=== PATIENT | female | born 1975 | race African-American/Black ===

== ENCOUNTER → 2016-09-17 | Outpatient (CLI) | payer OTHER ==
[~2016-09-17] MED LIST: ALBU17IN INH; ALBU17IN2 INH; CETI10TA PO; COMBAER6 INH; E-ZMIS3 XX; LEVA12INH INH; LEVA1TAB2 PO; PRED10TA2 PO; PRED20TA PO; TRAM50TA2 PO; [UNRECOGNIZED DRUG - CODE] PO
--- NOTE | 2016-09-17 13:45 | REP ---
RIGHT RIB SERIES: Four views of the right ribs are performed. No fracture or bone lesion is seen. An accompanying view of the chest demonstrates no acute infiltrate or other acute abnormality. The heart is normal in size. IMPRESSION: Negative right rib series. Signed by Fabrizio Quinn MD 09/17/2016 03:31 P
== END ==
LOC: M LRY 12:38
PROVIDERS: ATTEND Nurse Practitioner Family
DX: R07.81 Pleurodynia (principal)

== ENCOUNTER 2016-09-22 11:36 | Observation (INO) | payer OTHER ==
[~2016-09-22] VITALS: Ht 172.7 cm; Wt 75.7 kg
[2016-09-22] MEDS ORDERED: ALBU17IN2 INH (11:54)
[2016-09-22] MEDS ORDERED: TRAM50TA2 PO ×2 (11:54→17:52)
[2016-09-22] MEDS ORDERED: IPRATROPIUM 0.5MG/ALBUTEROL 2.5MG INH SOL UD 3ML (DUONEB)(J7620) NEB STA (12:46)
[2016-09-22] MEDS ORDERED: methylPREDNISolone INJ 125 MG/2 ML VIAL (J2930) IV ONE (13:00)
[2016-09-22 13:13] LABS: BASO # 0.1 K/mm3 (0.0-0.2); BASO % 1.1 % (0.0-1.0); EOS # 0.6 K/mm3 (0.0-0.50); EOS % 6.6 % (0.0-3.0); LARGE UNSTAINED CELL # 0.1 K/mm3 (0.0-0.4); LARGE UNSTAINED CELL % 1.1 % (0.0-4.0); LYMPH # 1.1 K/mm3 (1.5-4.5); MEAN CORPUSCULAR HGB CONC 33.7 g/dl (32.0-36.5); MONO # 0.6 K/mm3 (0.0-0.8); NEUTROPHILS % 73.2 % (36.0-66.0); PLATELET COUNT, AUTOMATED 320 k/mm3 (150-450); RED CELL DISTRIBUTION WIDTH 12.6 % (11.5-14.5); WHITE BLOOD COUNT 9.5 K/mm3 (4.0-10.0)
[2016-09-22 13:14] LABS: ALBUMIN 3.7 GM/DL (3.2-5.2); ALBUMIN/GLOBULIN RATIO 0.88 (1.00-1.93); ALKALINE PHOSPHATASE 61 U/L (45-117); ALT/SGPT 17 U/L (12-78); ANION GAP 5 MEQ/L (8-16); AST/SGOT 20 U/L (15-37); BILIRUBIN,DIRECT 0.1 MG/DL (0.0-0.2); BILIRUBIN,TOTAL 0.4 MG/DL (0.2-1.0); BLOOD UREA NITROGEN 10 MG/DL (7-18); CALCIUM LEVEL 9.2 MG/DL (8.5-10.1); CARBON DIOXIDE LEVEL 28 MEQ/L (21-32); CHLORIDE LEVEL 107 MEQ/L (98-107); GLOMERULAR FILTRATION RATE > 60.0 (>58); GLUCOSE, FASTING 91 MG/DL (70-105); MAGNESIUM LEVEL 2.2 MG/DL (1.8-2.4); POTASSIUM SERUM 4.3 MEQ/L (3.5-5.1); SODIUM LEVEL 140 MEQ/L (136-145); TOTAL PROTEIN 7.9 GM/DL (6.4-8.2)
[2016-09-22] MEDS: ALBUTEROL SULFATE 2.5 MG/0.5 ML INH NEB SOLN NEB PRN ×2 (13:18→13:37)
[2016-09-22] MEDS ORDERED: ISOVUE-370 76% 100ML VIAL (Q9967) As Ordered ONE (13:24)
[2016-09-22 13:45] LABS: ABG BASE EXCESS -4.3 (-2.0-2.0); ABG HCO3 19.9 MEQ/L (22.0-26.0); ABG PARTIAL PRESSURE CO2 34.3 mmHg (35.0-45.0); ABG STANDARD HCO3 20.9 MEQ/L (22.0-26.0); ABG pH (ARTERIAL) 7.382 UNITS (7.350-7.450)
--- NOTE | 2016-09-22 14:08 | ECGEPIP ---
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
--- NOTE | 2016-09-22 14:55 | REP ---
CT ANGIOGRAM CHEST: 09/22/2016 CLINICAL HISTORY: Dyspnea, right-sided chest pain. TECHNIQUE: The patient received a bolus of 75 mL Isovue 370 and scanning through the chest with both coronal and sagittal thick slab MIP reformats. FINDINGS: There were no prior studies. Bilateral patchy ground-glass opacities in both lungs, more on the left than right, may reflect some hazy atelectasis or patchy interstitial infiltrates. I do not see air bronchograms. I do not see pleural effusion, focal pleural thickening or pleural based mass. There is no pneumothorax, pneumomediastinum. No cardiomegaly, pericardial thickening or effusion. The aorta is without aneurysm or dissection. The main, right and left pulmonary arteries and the mediastinum are without filling defects. Visible lobe are, segmental and proximal subsegmental vessels are also without definite filling defects or vessel cutoff. No pathologic sized mediastinal or hilar adenopathy. Some prevascular space nodes up to 7 mm sub-centimeter right paratracheal node and hilar nodes also noted. No axillary or supraclavicular mass. Bone windows show the sternum, manubrium, medial clavicles, the right lateral clavicle and AC joint, glenohumeral joints, scapula and ribs without fracture. Spine is without acute finding. In the upper abdomen, that portion of liver included is unremarkable. Spleen is not enlarged and shows no focal lesion. Adrenal glands are normal. Upper poles kidneys intact. Only a portion of the gallbladder and pancreas are included and are unremarkable. Small hiatal hernia may be present. IMPRESSION: 1. There is no CT evidence of pulmonary thromboembolism, pleural effusion, pneumothorax or pneumomediastinum. No visible or displaced rib fracture or focal rib lesion. 2. There is bilateral patchy ground-glass opacities scattered in both lungs, more on the left than right without air bronchograms. This suggests interstitial infiltrates or atelectasis. No effusion or other acute finding. Signed by Claude Cavanaugh MD 09/22/2016 07:12 P
[2016-09-22] MEDS ORDERED: E-ZMIS3 XX (15:39)
[2016-09-22] MEDS ORDERED: PRED20TA PO (15:39)
[2016-09-22] MEDS ORDERED: COMBAER6 INH (15:39)
[2016-09-22] MEDS ORDERED: [UNRECOGNIZED DRUG - CODE] PO (15:39)
[2016-09-22] MEDS ORDERED: IPRATROPIUM 0.5MG/ALBUTEROL 2.5MG INH SOL UD 3ML (DUONEB)(J7620) NEB ONE (16:30)
[2016-09-22] MEDS ORDERED: AZITHROMYCIN INJ 500 MG, VIAL MATE ADAPTER 1 EACH in D5W 250 ML IV ONE (17:00)
[2016-09-22] MEDS ORDERED: cefTRIAXone SOD 1 GM in D5W MINI-BAG PLUS 50 ML IV ONE (17:00)
[2016-09-22] MEDS ORDERED: ALBU17IN INH (17:52)
[2016-09-22] MEDS ORDERED: CETI10TA PO (17:52)
[2016-09-22 19:02] VITALS: BP 122/78
[2016-09-22] MEDS: LEVALBUTEROL 1.25 MG/0.5 ML CONCENTRATE NEB NEB SCH (19:17)
[2016-09-22] MEDS: methylPREDNISolone INJ 125 MG/2 ML VIAL (J2930) IV SCH (19:58)
[2016-09-22 20:00] VITALS: BP 132/75
[2016-09-22] MEDS: HEPARIN SOD (PORCINE) 5000 UNITS/ML VIAL SQ SCH (21:49)
[2016-09-22] MEDS: ALPRAZolam 0.25 MG TAB PO PRN ×3 (21:50→23:13)
[2016-09-22] MEDS: LEVALBUTEROL 1.25 MG/0.5 ML CONCENTRATE NEB NEB PRN (22:00)
[2016-09-22 23:59] VITALS: BP 141/72
[2016-09-23] MEDS: LEVALBUTEROL 1.25 MG/0.5 ML CONCENTRATE NEB NEB SCH ×2 (02:02→07:06)
[2016-09-23] MEDS: methylPREDNISolone INJ 125 MG/2 ML VIAL (J2930) IV SCH ×3 (02:07→16:28)
[2016-09-23 04:00] VITALS: BP 118/72
[2016-09-23] MEDS: HEPARIN SOD (PORCINE) 5000 UNITS/ML VIAL SQ SCH ×3 (06:22→22:08)
[2016-09-23 06:28] LABS: MEAN CORPUSCULAR HEMOGLOBIN 31.1 pg (27.0-33.0); MEAN CORPUSCULAR HGB CONC 34.1 g/dl (32.0-36.5); MEAN CORPUSCULAR VOLUME 91.3 fl (80.0-96.0); RED CELL DISTRIBUTION WIDTH 13.1 % (11.5-14.5); WHITE BLOOD COUNT 18.1 K/mm3 (4.0-10.0)
[2016-09-23 06:45] LABS: ANION GAP 10 MEQ/L (8-16); BLOOD UREA NITROGEN 12 MG/DL (7-18); CALCIUM LEVEL 9.4 MG/DL (8.5-10.1); CARBON DIOXIDE LEVEL 24 MEQ/L (21-32); CHLORIDE LEVEL 107 MEQ/L (98-107); CREATININE FOR GFR 0.93 MG/DL (0.55-1.02); GLOMERULAR FILTRATION RATE > 60.0 (>58); GLUCOSE, FASTING 136 MG/DL (70-105); POTASSIUM SERUM 4.1 MEQ/L (3.5-5.1); SODIUM LEVEL 141 MEQ/L (136-145)
[2016-09-23 08:00] VITALS: BP 118/72
[2016-09-23] MEDS ORDERED: ALBUTEROL SULFATE 2.5 MG/0.5 ML INH NEB SOLN NEB SCH (08:00)
--- NOTE | 2016-09-23 08:12 | HPE ---
DATE OF ADMISSION: 09/22/2016 CHIEF COMPLAINT: 41-year-old female comes in complaining of shortness of breath. HISTORY OF PRESENT ILLNESS: This is a 41-year-old female with no significant past medical history of lung disease and no past history, presented complaining of shortness of breath and cough. The patient states that she has been having cough for the past five days. Therefore came to the emergency room for further evaluation. The patient also mentioned that she has had a cough and clear sputum production since June of this year. Initially in June, the patient's son had a cold in June and did not receive any antibiotic, but with only supportive therapy, his symptoms resolved. Unfortunately, her symptoms continued, which included cough and clear sputum production. The patient smokes half a pack a day and has been doing so for the past 20 years. Denies any fever at home, but did feel warm. No chills, no diarrhea or dysuria. The patient also denies of any family history of lung disease. Denies of any personal history of lung disease as well. She does also mention having some seasonal allergy, which may be affecting her shortness of breath. The patient was evaluated in the emergency room, had lab done, which showed positive D-dimer and had a CT angiogram of the chest; and as per radiology showed no pulmonary embolism, pleural effusion, pneumothorax or pneumomediastinum. But there was a bilateral patchy ground glass opacity scattered in both lungs, more on the left than the right without air bronchograms. This suggest interstitial infiltrate or atelectasis. No effusion or acute finding. The patient did tolerate respiratory treatment and steroid in the emergency room; but unfortunately with some exertion, the patient became short of breath. Due to this, the patient is being admitted for further evaluation and treatment. In the emergency room, the patient had some anxiety, feels anxious about being in the hospital with new terminologies that is being used for her. I have simplified my explanation of her condition and plan with her satisfaction. The patient smokes a half a pack a day for 20 years and she stopped smoking five days ago due to her shortness of breath. REVIEW OF SYSTEMS: 10-point review of systems is negative, other than those described in the history of present illness. PAST MEDICAL HISTORY SIGNIFICANT FOR: None. No history of asthma or chronic obstructive pulmonary disease (COPD), but she does smoke half a pack a day and has been doing so for 20+ years. Last smoking a cigarette was five days ago. PAST SURGICAL HISTORY: The patient had a biopsy of the right wrist, which was benign. Cervical cerclage for her son. ALLERGIES: The patient has no known drug allergies. MEDICATIONS: Does not take any medications at home, but previous medication list seems that the patient was on albuterol and ipratropium and Combivent and had received prednisone in the past along with tramadol. But at this time, the patient states that she does not take any medications at home. FAMILY MEDICAL HISTORY: Father with history of liver cancer, but was an alcoholic. Mother with history of hypertension and obesity. Both parents smoke without any history of lung disease. PHYSICAL EXAMINATION: VITAL SIGNS: Last temperature is 99.2, heart rate of 120 , respiratory rate of 20, blood pressure is 124/69, saturating 92% on room air. HEENT: Normocephalic, no trauma, no infection of the eyes. Nose and throat is within normal limits. Pupils equal, round, and reactive to light and accommodation. Mucosa is moist. NECK: Supple. No tracheal deviation. CARDIAC MILIAN: S1, S2 tachycardiac. Pulses present. LUNGS: Equal air entry. Did not hear any wheezes, rales or rhonchi. ABDOMEN: Soft, nontender. Bowel sounds present. EXTREMITIES: Lower extremities, no significant pitting edema. Capillary refill present in all four extremities. SKIN: Intact, warm to touch, afebrile. NEURO: The patient is currently awake, alert, oriented. Cranial nerves grossly intact. Motor and sensory intact. PSYCHIATRIC: Normal mood and affect for current situation. DIAGNOSTIC STUDIES: The patient had white blood count (WBC), hemoglobin and hematocrit and platelet count all within normal limits. Comprehensive metabolic profile is all within normal limits. Cardiac enzymes are within normal limits. Troponin is negative except for total CK of 236. Basic metabolic panel (BMP) is within normal limits. Thyroid simulating hormone (TSH) within normal limits, as well. The patient's coagulation study of D-dimer was positive. Blood gas did show a pH of 7.38, pCO2 of 34.3, oxygen of 70 and bicarbonate 90.9 , saturating 93.8. Respiratory viral panel was negative. Blood cultures are pending at this time. CT angiogram as mentioned previously showed no evidence of pulmonary embolism, pleural effusion, pneumothorax or pneumomediastinum. No visible or displaced rib fracture or focal rib lesion. There is bilateral patchy ground glass opacity scattered in both lungs, more on the left than the right without air bronchograms. This suggest interstitial infiltrate or atelectasis. No effusion or other acute finding. ASSESSMENT AND PLAN: This is a pleasant 41-year-old female with no significant past medical history other than smoking half a pack a day for the past 20+ years , who quit smoking five days ago due to shortness of breath. 1. Chronic obstructive pulmonary disease (COPD), asthma exacerbation with possible pending pneumonia with history of viral exposure in June. The patient will receive respiratory treatment, oxygen therapy as needed, empiric steroids and azithromycin and Rocephin. Smoking cessation was strongly advised and nicotine patch offered. Will defer pulmonary consult to the on coming team if the patient does not clinically improve. 2. Tachycardia and anxiety. I have addressed all of her concerns and issues. The patient will be monitored on telemetry floor, but I suspect this is secondary to due to problem #1. Will utilize Xopenex for respiratory treatment to not to exacerbate the tachycardia. Also electrocardiogram (EKG) for further evaluation. Provide treatment #1 and nicotine patch and Xanax as needed. 3. Deep vein thrombosis (DVT) prophylaxis. MTDD
[2016-09-23] MEDS: NICOTINE 14 MG/24 HR TRANSDERMAL TD SCH (10:59)
[2016-09-23] MEDS: LEVALBUTEROL 1.25 MG/0.5 ML CONCENTRATE NEB INH SCH ×3 (11:07→20:12)
[2016-09-23 12:00] VITALS: BP 123/79
[2016-09-23] MEDS: LEVALBUTEROL 1.25 MG/0.5 ML CONCENTRATE NEB NEB PRN (13:45)
[2016-09-23] MEDS: ALPRAZolam 0.25 MG TAB PO PRN ×2 (14:56→22:08)
[2016-09-23 16:00] VITALS: BP 107/58
[2016-09-23] MEDS ORDERED: AZITHROMYCIN INJ 500 MG, VIAL MATE ADAPTER 1 EACH in D5W 250 ML IV SCH (17:00)
[2016-09-23] MEDS ORDERED: cefTRIAXone SOD 1 GM in D5W MINI-BAG PLUS 50 ML IV SCH (18:00)
--- NOTE | 2016-09-23 18:19 | ECGEPIP ---
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 Atrial conduction disturbance. Low voltages with slightly prominent R wave in V2 and persistent S waves in V5 and V6; body habitus versus pulmonary disease. No change from 09/22/16 Electronically Signed On 09-23-2016 18:19:20 EDT by Js Shaffer
--- NOTE | 2016-09-23 19:38 | IPN ---
DATE: 09/23/2016 SUBJECTIVE: Patient is seen and examined in the room today. Patient still has significant wheezes. Patient is concerned with her son who has functional autism. Patient stated that she cannot get a family member or a friend to come to the hospital and look after her son and she became very tearful near the end of the encounter. OBJECTIVE: VITAL SIGNS: Temperature is 98.2, pulse is 110, respiration rate 18, blood pressure is 118/72, pulse oximetry is 93% in room air. GENERAL: Mild to moderate distress secondary to respiratory distress. HEENT: Positive accessory muscle use, alert and oriented times three. Normocephalic, atraumatic. Extraocular motors grossly intact. CARDIOVASCULAR: Tachycardia, positive S1, S2. LUNGS: Significant wheezes bilaterally throughout. ABDOMEN: Soft, nontender, nondistended. Bowel sounds present. No rebound. No guarding. EXTREMITIES: No edema. No sign of cyanosis. LABORATORY DATA: WBC 18.1, hemoglobin 12.9, hematocrit 37.8, platelet count 280. Sodium 141, potassium 4.1, chloride 107, carbon dioxide 24, BUN 12, creatinine 0.93, GFR greater than 60, fasting glucose 136, calcium 9.4, C-reactive protein 3.73. ASSESSMENT AND PLAN: 1. Acute respiratory distress. Patient continues to have significant wheezes. Patient has never carried a diagnosis of chronic obstructive pulmonary disease (COPD) or asthma. Respiratory panel is negative. Will follow with sputum cultures. Empirically, patient is started on Rocephin and azithromycin and supplemented with IV steroids and patient continues to have as needed nebulizers. 2. History of tobacco abuse. Patient has a nicotine patch. 3. Anxiety. Patient has Xanax as needed. Patient's anxiety is most likely due to the feeling of lack of family or friend support. Currently patient also has respiratory distress while having the responsibility to take care of her son. nutritional services host has been assisting on the issue to seek additional assistance while patient is in the hospital. 4. Deep venous thrombosis (DVT) prophylaxis. On heparin.
[2016-09-23 20:00] VITALS: BP 120/74
[2016-09-23] MEDS ORDERED: CETIRIZINE (ZyrTEC) 10 MG TAB PO SCH (21:00)
[2016-09-23 23:59] VITALS: BP 104/58
[2016-09-24] MEDS: LEVALBUTEROL 1.25 MG/0.5 ML CONCENTRATE NEB INH SCH ×3 (00:15→07:14)
[2016-09-24] MEDS: methylPREDNISolone INJ 125 MG/2 ML VIAL (J2930) IV SCH ×2 (01:38→10:00)
[2016-09-24 04:00] VITALS: BP 105/57
[2016-09-24 05:31] LABS: BASO % 0.1 % (0.0-1.0); EOS # 0.3 K/mm3 (0.0-0.50); EOS % 1.4 % (0.0-3.0); LARGE UNSTAINED CELL # 0.1 K/mm3 (0.0-0.4); LARGE UNSTAINED CELL % 0.3 % (0.0-4.0); LYMPH % 4.3 % (24.0-44.0); MEAN CORPUSCULAR HEMOGLOBIN 30.9 pg (27.0-33.0); MEAN CORPUSCULAR HGB CONC 33.4 g/dl (32.0-36.5); MEAN CORPUSCULAR VOLUME 92.5 fl (80.0-96.0); MONO # 0.5 K/mm3 (0.0-0.8); MONO % 2.1 % (0.0-5.0); NEUTROPHILS # 20.9 K/mm3 (1.8-7.7); NEUTROPHILS % 91.9 % (36.0-66.0); PLATELET COUNT, AUTOMATED 287 k/mm3 (150-450); RED CELL DISTRIBUTION WIDTH 13.2 % (11.5-14.5); WHITE BLOOD COUNT 22.7 K/mm3 (4.0-10.0)
[2016-09-24 05:49] LABS: ANION GAP 8 MEQ/L (8-16); BLOOD UREA NITROGEN 20 MG/DL (7-18); CALCIUM LEVEL 8.8 MG/DL (8.5-10.1); CARBON DIOXIDE LEVEL 24 MEQ/L (21-32); CHLORIDE LEVEL 111 MEQ/L (98-107); CREATININE FOR GFR 0.93 MG/DL (0.55-1.02); GLOMERULAR FILTRATION RATE > 60.0 (>58); GLUCOSE, FASTING 123 MG/DL (70-105); POTASSIUM SERUM 4.3 MEQ/L (3.5-5.1); SODIUM LEVEL 143 MEQ/L (136-145)
[2016-09-24] MEDS: HEPARIN SOD (PORCINE) 5000 UNITS/ML VIAL SQ SCH (06:00)
[2016-09-24 08:00] VITALS: BP 108/60
[2016-09-24] MEDS ORDERED: LEVA12INH INH ×2 (08:34→10:44)
[2016-09-24] MEDS ORDERED: LEVA1TAB2 PO ×2 (08:34→10:44)
[2016-09-24] MEDS ORDERED: PRED10TA2 PO ×2 (08:34→10:44)
[2016-09-24] MEDS ORDERED: CETI10TA PO ×2 (08:34→10:44)
[2016-09-24] MEDS: NICOTINE 14 MG/24 HR TRANSDERMAL TD SCH (09:00)
--- NOTE | 2016-09-24 20:51 | DSES ---
DATE OF ADMISSION: 09/22/2016 DATE OF DISCHARGE: 09/24/2016 PRIMARY CARE PROVIDER: Ranjana Begum. ADMISSION/DISCHARGE DIAGNOSES: Acute respiratory distress with significant wheeze. History of tobacco abuse. Anxiety. Leukocytosis secondary to steroid use. CONSULTANTS: None. PROCEDURES: None. COMPLICATIONS: None. HOSPITALIZATION COURSE: Patient is a 41-year-old female, presented to [facility] on 09/22/2016 with worsening shortness of breath with significant wheeze. CT angiogram was performed, and the patient was admitted to telemetry, and patient started on azithromycin and Rocephin along with intravenous (IV) steroids. With medical management and frequent nebulizer treatments, the patient's respiratory distress with tachycardia showed continued improvement. On 09/24/2016, the patient was determined stable for discharge with the recommendation to finish the course of antibiotics and continue to take the tapering dose of steroids. The patient has no history of being diagnosed with asthma or chronic obstructive pulmonary disease (COPD). However, the patient does have a significant family history of significant smoking history. The patient was instructed to followup with her primary care provider and patient should benefit from pulmonology referral for pulmonary function test. OBJECTIVE: Vital signs: Temperature 98.5, pulse 87, respirations 18, blood pressure 108/60, pulse oximetry is 97% in room air. LABORATORY DATA: WBC 22.7, hemoglobin 12.1, hematocrit 36.4, platelet count is 287. Sodium is 143, potassium 4.3, chloride is 111, carbon dioxide 24, BUN 20, creatinine is 0.93, GFR greater than 60, fasting glucose 123, calcium is 8.8, C-reactive protein is 1.89. D-dimer is 1212. Microbiology: Blood cultures are negative after 48 hours. Respiratory panel is negative. Sputum sample: Official report pending. CT angiogram of the chest 09/22/[address] evidence of pulmonary embolism, pleural effusions, pneumothorax or pneumomediastinum. No visible or displaced rib fracture or focal rib lesions. There is bilateral patchy ground-glass opacity scattered in the bilateral lung, left greater than right without air bronchogram. DISCHARGE INSTRUCTIONS: Discontinue line. Discharge home. Activity as tolerated. Low salt diet as tolerated. Recommend smoking cessation. Patient was recommended to finish a course of antibiotics and with tapering steroids. Patient was recommended to followup with the [facility] in 1 week. Patient was recommended to have a referral to nursing staff development coordinator for pulmonary function test. Nebulizer is prescribed to the patient and recommend using nebulizer as needed if the patient has any exacerbations. DISCHARGE MEDICATIONS: - Zyrtec 10 mg by mouth nightly - Xopenex inhalation every 4 hours as needed for 14 days - Levaquin 500 mg by mouth daily - prednisone on tapering dose DISCHARGE CONDITION: Fair. DISCHARGE TIME: Greater than 30 minutes.
== END 2016-09-24 10:41 | disposition home or self-care (01) ==
LOC: M ED 11:36 → EDBD 11:36 → M ED 15:52 → M ED INP 17:29 → M PCU 18:47
PROVIDERS: ADMIT Internal Medicine; ATTEND Internal Medicine
DX: J44.1 Chronic obstructive pulmonary disease with (acute) exacerbation (principal); R06.2 Wheezing; F41.9 Anxiety disorder, unspecified; D72.829 Elevated white blood cell count, unspecified; F17.210 Nicotine dependence, cigarettes, uncomplicated; Z79.52 Long term (current) use of systemic steroids; Z79.899 Other long term (current) drug therapy
CPT/HCPCS: 36415; 36600; 71275; 80048; 80076; 82550; 82553; 82803; 83735; 83880; 84443; 85025; 85027; 85379; 86140; 87040; 87070; 87205; 87486; 87581; 87633; 87798; 93005; 93041; 94640; 96365; 96366; 96367; 96375; 96376; 99285; J0456; J0696; J2930; Q9967

== ENCOUNTER → 2017-09-07 | Outpatient (CLI) | payer OTHER | LOC: M RAD 13:26 | DX: N60.01 Solitary cyst of right breast (principal) | CPT/HCPCS: 77066 ==

== ENCOUNTER → 2017-09-19 | Outpatient (CLI) | payer OTHER ==
[~2017-09-19] MED LIST changes: -ALBU17IN INH; -ALBU17IN2 INH; -CETI10TA PO; -COMBAER6 INH; -E-ZMIS3 XX; -LEVA12INH INH; -LEVA1TAB2 PO; +LIDOCAINE 1% MDV 20ML VIAL As Ordered; -PRED10TA2 PO; -PRED20TA PO; -TRAM50TA2 PO; -[UNRECOGNIZED DRUG - CODE] PO
== END ==
LOC: M RADPRO 07:59
DX: D24.1 Benign neoplasm of right breast (principal); J44.9 Chronic obstructive pulmonary disease, unspecified; Z79.899 Other long term (current) drug therapy; Z87.891 Personal history of nicotine dependence
CPT/HCPCS: 19083

== ENCOUNTER → 2019-03-27 | Outpatient (CLI) | payer OTHER ==
[~2019-03-27] MED LIST changes: +ALBU17IN INH; +ALBU17IN2 INH; +CETI10TA PO; +COMBAER6 INH; +E-ZMIS3 XX; +LEVA12INH INH; +LEVA1TAB2 PO; -LIDOCAINE 1% MDV 20ML VIAL As Ordered; +PRED10TA2 PO; +PRED20TA PO; +TRAM50TA2 PO; +[UNRECOGNIZED DRUG - CODE] PO
--- NOTE | 2019-03-27 10:20 | REP ---
Chest x-ray: Two views. History: Back and chest pain . Comparison study: September 17, 2016 . Findings: The lungs are well inflated and free of infiltrate. The pleural angles are sharp. The heart size is normal. Pulmonary vasculature is not increased. No significant bony abnormality is seen. Impression: Negative chest x-ray. Electronically Signed by Sven Cornelius MD 03/27/2019 10:12 A
== END ==
LOC: M LRY 09:46
PROVIDERS: ATTEND Nurse Practitioner Family
DX: R07.9 Chest pain, unspecified (principal)
CPT/HCPCS: 71046; 80053; 84484; 85025; 93005; G0463

== ENCOUNTER → 2019-03-27 | Outpatient (REF) | payer OTHER ==
[2019-03-27 11:15] LABS: BASO # 0.1 10^3/uL (0.0-0.2); BASO % 1.3 % (0.0-1.0); EOS # 0.1 10^3/uL (0.0-0.5); EOS % 1.6 % (0.0-3.0); HEMATOCRIT 37.1 % (36.0-47.0); HEMOGLOBIN 10.9 g/dl (12.0-15.5); LYMPH # 1.9 10^3/uL (1.5-5.0); MEAN CORPUSCULAR HEMOGLOBIN 25.6 pg (27.0-33.0); MEAN CORPUSCULAR HGB CONC 29.4 g/dl (32.0-36.5); MEAN CORPUSCULAR VOLUME 87.3 fl (80.0-96.0); MONO # 0.4 10^3/uL (0.0-0.8); MONO % 8.3 % (0.0-5.0); NEUTROPHILS % 45.6 % (36.0-66.0); PLATELET COUNT, AUTOMATED 350 10^3/uL (150-450); RED BLOOD COUNT 4.25 10^6/uL (4.00-5.40); WHITE BLOOD COUNT 4.5 10^3/uL (4.0-10.0)
[2019-03-27 11:46] LABS: ALT/SGPT 14 U/L (12-78); BILIRUBIN,TOTAL 0.3 MG/DL (0.2-1.0); BLOOD UREA NITROGEN 7 MG/DL (7-18); CARBON DIOXIDE LEVEL 28 MEQ/L (21-32); CHLORIDE LEVEL 107 MEQ/L (98-107); CREATININE FOR GFR 1.05 MG/DL (0.55-1.30); GLOMERULAR FILTRATION RATE > 60.0 (>58); GLUCOSE, FASTING 86 MG/DL (70-100); POTASSIUM SERUM 4.4 MEQ/L (3.5-5.1); SODIUM LEVEL 140 MEQ/L (136-145); TOTAL PROTEIN 7.4 GM/DL (6.4-8.2); TROPONIN I < 0.02 NG/ML (< 0.10)
== END ==
LOC: M SFHCLERA 10:13
PROVIDERS: ATTEND Nurse Practitioner Family
DX: R07.9 Chest pain, unspecified (principal)